=== PATIENT | male | born 1975 | race Caucasian/White ===

== ENCOUNTER 2023-10-28 08:15 | Outpatient (CLI) | payer BC, SELFPAY | END 2023-10-28 08:16 | disposition home or self-care (01) | LOC: NFLDREF 10-31 14:32 | PROVIDERS: PCP Family Medicine; Referring Provider Family Medicine; Visit Provider Family Medicine | DX: Z13.220 Encounter for screening for lipoid disorders (principal); Z13.1 Encounter for screening for diabetes mellitus; Z13.228 Encounter for screening for other metabolic disorders | CPT/HCPCS: 80053; 80061; 82947 ==

== ENCOUNTER 2023-12-30 09:12 | Outpatient (CLI) | payer BC, SELFPAY ==
--- NOTE | 2023-12-30 10:17 | W.ANESCHARGE ---
Anesthesia Charges Start Date/Time Anesthesia Start Date: 12/30/23 Anesthesia Start Time: 10:02 Stop Date/Time Anesthesia Stop Date: 12/30/23 Anesthesia Stop Time: 10:33
--- NOTE | 2023-12-30 10:53 | W.ANESCHARGE ---
Anesthesia Charges Start Date/Time Anesthesia Start Date: 12/30/23 Anesthesia Start Time: 10:02 Stop Date/Time Anesthesia Stop Date: 12/30/23 Anesthesia Stop Time: 10:33
== END 2023-12-30 09:13 | disposition home or self-care (01) ==
LOC: OP CLINIC 09:12
PROVIDERS: PCP Family Medicine; Visit Provider Surgery
DX: Z12.11 Encounter for screening for malignant neoplasm of colon (principal)
CPT/HCPCS: 00811; 00812; 45378; J2704